=== PATIENT | female | born 1965 | race African-American/Black ===

== ENCOUNTER → 2017-03-06 | Day surgery (SDC) | payer OTHER ==
[~2017-03-06] VITALS: Ht 157.5 cm; Wt 106.6 kg
--- NOTE | 2017-03-06 08:12 | History & Physical Pre-Op ---
General Information and HPI History of Present Illness: Danni is a 51-year-old female with a long-standing and worsening complaint of pain to both the left and right heels. The patient has undergone an extended course of conservative care, including shoe gear and activity modification, rest , immobilization and courses of NSAIDs. None of this is yielded her any significant relief. The patient presents today for preoperative surgical consultation. The patient was referred to our office from Tino Hudson DPM. Past History Medical History Neurological: seizure Cardiovascular: hypertension Surgical History Pertinent Surgical History: , tubal ligation Review of Systems Review of Systems: Unremarkable except for that noted in history of present illness Exam & Diagnostic Data Physical Exam: Lungs clear bilaterally. Heart sounds rate and rhythm regular. Lower extremity physical exam demonstrates intact pedal pulses bilaterally. Pulses dorsalis pedis and posterior tibial arteries are palpable bilaterally. Patient without any sensory motor deficits. Deep tendon reflexes grossly intact. Patient noted to have significant pain with palpation to the plantar medial aspect of the left and right heels. Negative Tinel sign noted with percussion the posterior tibial nerve. Ankle range of motion noted to be diminished, especially in dorsiflexion. Assessment/Plan Assessment/Plan: Plantar fasciitis left and right feet. A lengthy discussion reviewing both surgical and conservative options was held the patient at bedside and the patient elects to go forward with surgery despite the risks. As Ranked By This Provider Problem List: 1. Plantar fascial fibromatosis Attending MD Review Statement Attending Statement Attending MD Statement: examined this patient
--- NOTE | 2017-03-06 09:39 | Operative Report ---
Operative/Inv Procedure Report Surgery Date: 03/06/17 Name of Procedure: 1 gastroc recession right 2 gastroc recession left 3 plantar fasciotomy right 4 plantar fasciectomy right 5 plantar fasciotomy left 6 plantar fasciectomy left Pre-Operative Diagnosis: 1. Gastrocnemius equinus right 2 gastrocnemius equinus left 3 plantar fasciitis right 4 plantar fasciitis left Post-Operative Diagnosis: Same Estimated Blood Loss: scant Surgeon/Envelope Sealer: William Reyes DPM, DPM Anesthesia: moderate sedation, block Operative/Procedure Note Note: After obtaining informed consent the patient was brought to the operating room and placed on the operating table in supine position. The patient isn't securely fastened to the operating table utilizing safety belt. After administration of IV sedation, 10 mL of 0.5% Marcaine plain was obtained about the patient's left and right ankles. 2 well-padded Tourniquets were placed about the patient's left and right upper cast. 2 g of Ancef were delivered intravenously times one dose. Left right lower extremities within scrubbed prepped and draped in usual aseptic manner. The right lower extremity was elevated to examine to limb, which point the calf tourniquet inflated 250 mmHg. Attention was directed to the distal right leg, where a linear incision was made 2 finger breast distal to the medial have a gastrocnemius muscle. Dissection was then carried down to the medial margin of the gastroc fascia. An interval was developed between the peritenon and fascia. The sural nerve was identified and protected and a gastrocnemius recession was then performed. The deep tissues reprepped with 4-0 Vicryl and the skin edges. Proximal forearm nylon. Attention was then directed to the plantar medial aspect of the right heel, where portals well-developed with a sterile 62 K wire. Next, the tissue was ablated with 4 W of radiofrequency energy utilizing the YesPlz! micro-ablator. Dissection was then carried out medial margin of the plantar fascia, which was released from its origin the medial tubercle calcaneal tuberosity. The incision closed with 4-0 Vicryl. The incisions were then dressed with Xeroform [place] dressings and Coban. It was then deflated. Next, the left lower extremity was elevated to examine to limb at which point the calf tourniquet was inflated 250 mmHg. Attention directed to the distal left leg, where a linear incision was made 2 finger breast distal to the medial have a gastrocnemius muscle. The dissection was then carried down to the medial margin of the gastroc fascia, where an interval was developed between the fashion the peritenon. Shoulder was identified and protected and a gastrocnemius recession was performed. The deep tissues reports a 4-0 Vicryl skin edges reprepped for nylon. Next, portals well-developed at the plantar medial aspect of the left heel with a sterile 62 K wire. The tissues were then ablated with the YesPlz! micro-ablator delivering 4 W of radiofrequency energy. He dissection was then carried down to the medial margin of the plantar fascia which was released from its origin the medial tubercle calcaneal tuberosity. The tissues were then closed with 4-0 Vicryl and the incision dressed with Xeroform [place] dressings and Coban. The patient was noted tolerate both procedure and anesthesia well and the patient was transported from the operating room to recovery via signs stable best assess intact all digits bilateral feet. Please cc a copy of this dictation to Tino Hudson DPM.
== END ==
LOC: STS 01:33
DX: M21.6X2 Other acquired deformities of left foot (principal); M21.6X1 Other acquired deformities of right foot; M72.2 Plantar fascial fibromatosis; I10 Essential (primary) hypertension
CPT/HCPCS: J0690; J1100; J2001

== ENCOUNTER → 2017-08-14 | Day surgery (SDC) | payer OTHER ==
--- NOTE | 2017-08-11 15:36 | History & Physical Pre-Op ---
General Information and HPI History of Present Illness: Danni is a 52-year-old female with a long-standing and worsening complaint of painful spurs to the left and right heels. The patient has undergone an extended course of conservative care, including shoe gear and activity modification, rest, immobilization and courses of NSAIDs. None of this is yielded her any significant relief. The patient presents today for preoperative surgical consultation. The patient was referred to our office from Tino Hudson DPM. Allergies/Medications Allergies: Coded Allergies: No Known Allergies (08/10/17) Past History Medical History Neurological: seizure Cardiovascular: hypertension Surgical History Pertinent Surgical History: , tubal ligation Review of Systems Review of Systems: Unremarkable except for that noted in history present illness Exam & Diagnostic Data Physical Exam: Lungs clear bilaterally. Heart sounds rate and rhythm regular. Lower extremity physical exam demonstrates intact pedal pulses bilaterally. Pulses dorsalis pedis and posterior tibial arteries are palpable bilaterally. Patient without any sensory motor deficits. Deep tendon reflexes grossly intact. Patient noted to have cemented pain with palpation of the plantar medial aspect of the left and right heels. Negative Tinel sign noted with percussion the posterior tibial nerve bilaterally. Assessment/Plan Assessment/Plan: Painful heel spurs left and right feet. A lengthy discussion reviewing both surgical and conservative options was held the patient at bedside and the patient elected to go forward with surgery despite the risks. As Ranked By This Provider Problem List: 1. Calcaneal spur of both feet Attending MD Review Statement Attending Statement Attending MD Statement: examined this patient
[~2017-08-14] VITALS: Ht 157.5 cm; Wt 106.6 kg
[~2017-08-14] MED LIST: DEPAKOTE ER500 M1 PO; ESTRACE0.5 M1 PO; HYDROCHLOROTHIA25 M1 PO; IBUPROFEN800 M1 PO; LATUDA20 M1 PO; ROZEREM8 M1 PO; VITAMIN D1000 UNIT PO
--- NOTE | 2017-08-14 08:34 | Operative Report ---
Operative/Inv Procedure Report Surgery Date: 08/14/17 Name of Procedure: 1 Excision of heel spur right foot 2 Excision of heel spur left foot Pre-Operative Diagnosis: 1 painful and enlarging heel spur right foot 2 painful and enlarging heel spur left foot Post-Operative Diagnosis: The same Estimated Blood Loss: scant Surgeon/Top Lift Compressor: William Reyes DPM, Dr., DPM Anesthesia: moderate sedation, block Operative/Procedure Note Note: After obtaining informed consent the patient was brought to the operating room and placed on the operating table in the supine position. The patient isn't securely fastened to the operating table utilizing a safety belt. After administration of IV sedation, 10 mL of 0.5% Marcaine plain was infiltrated about the patient's left and right ankles. 2 well-padded ankle tourniquets were placed about the patient's left and right lower extremities. 2 g of Ancef were delivered intravenously times one dose. The left and right feet were then scrubbed, prepped and draped in usual aseptic manner. The right lower extremity is elevated to examine to limb, at which point the ankle tourniquet inflated 250 mmHg. A 3 cm incision was made at the junction the dorsal plantar skin. The dissection was then carried down to the medial margin of the plantar fascia which was removed from the medial tubercle calcaneal tuberosity. The bone spur was then rongeured and rasped smooth. The deep tissues were closed with 3-0 Vicryl and the skin edges reapproximated 3-0 nylon. The incision was dressed with Xeroform, 4 x 4's, Kerlix and an Tristian wrap. The tourniquet was then deflated. The left lower extremity was then elevated to examine to limb, which point the ankle tourniquet was inflated 250 mmHg. Attention directed to the medial foot where a 3 cm linear incision was made at the junction the dorsal plantar skin. Dissection was then carried down to the medial margin of the plantar fascia which was removed from its origin on the medial tubercle calcaneal tuberosity. The bone spur was then removed with a rongeur and smooth a bone rasp. The deep tissues reapproximated 3-0 Vicryl and the skin edges reapproximated 3-0 nylon. Incision was dressed with Xeroform, 4 x 4's, Kerlix and an Tristian wrap. The patient was noted to tolerate both procedure and anesthesia well and the patient was transported from the operating room to recovery with vital signs stable best assess intact all digits bilateral feet.
== END ==
LOC: STS 02:11
DX: M77.32 Calcaneal spur, left foot (principal); M77.31 Calcaneal spur, right foot; I10 Essential (primary) hypertension; E66.9 Obesity, unspecified
CPT/HCPCS: J0131; J0690; J1100; J2001; J2250; J3490